=== PATIENT | female | born 1950 | race Caucasian/White ===

== ENCOUNTER 2022-08-16 09:49 | Emergency (ER) | payer MEDICARE, BC ==
[2022-08-16 11:46] LABS: BARBITURATE SCREEN,URINE NEGATIVE (NEGATIVE); BENZODIAZEPINES SCREEN,URINE NEGATIVE (NEGATIVE); TCA SCREEN,URINE POSITIVE (NEGATIVE); THC SCREEN,URINE 50 NG/ML NEGATIVE (NEGATIVE)
== END 2022-08-16 12:10 | disposition left against medical advice (07) ==
LOC: KA.ED 09:49
DX: F60.0 Paranoid personality disorder (principal); Z91.010 Allergy to peanuts; Z91.018 Allergy to other foods; Z91.030 Bee allergy status; Z79.899 Other long term (current) drug therapy
CPT/HCPCS: 36415; 80048; 80305-QW; 80307; 81001; 85025; 99284; 99285